=== PATIENT | female | born 1970 | race Caucasian/White ===

== ENCOUNTER 2017-05-08 16:20 | Emergency (ER) | payer SELFPAY ==
[~2017-05-08] VITALS: Ht 162.6 cm; Wt 82.6 kg
[~2017-05-08 16:20] MED LIST: ALPR1TAB2 PO; DULO30CA2 PO; HYDR-2758 PO; HYDR12.53 PO; HYDR25TA9 PO; INSU100C4 SQ; INSU100V13 SQ; INSU100V5 IJ; LAMO25TA5 PO; LEVO125T5 PO; MIRT45TA PO; OMEP20TA8 PO; TRAZ100T12 PO; ZOLP10TA PO
[2017-05-08 16:36] VITALS: BP 121/57
[2017-05-08] MEDS ORDERED: VALIUM10 MG PO (16:50)
--- NOTE | 2017-05-08 16:53 | PHYS DOC ---
Past Medical History Past Medical History: Anxiety, Diabetes-Type I, Hypothyroid Additional Past Medical Histor: "renal problems" Past Surgical History: Cholecystectomy, Gastric Bypass Additional Past Surgical Histo: gastric bypass Alcohol Use: None Drug Use: None Adult General Chief Complaint Chief Complaint: ANXIETY/PANIC ATTACK [facility] HPI Patient is a 46 year old Female that presents to the emergency department with complaints of anxiety and requesting a medication refill. Patient states she takes 10 mg of Valium twice a day and is out of her prescription. She states she has a follow-up appointment in 3 days with her primary care provider. Patient is requesting enough that I am 10 mg tabs to maintain her through the next 3 days. Patient denies thoughts of self-harm or harm to others. Review of Systems Review of Systems Constitutional: Denies fever or chills [] Eyes: Denies change in visual acuity, redness, or eye pain [] HENT: Denies nasal congestion or sore throat [] Respiratory: Denies cough or shortness of breath [] Cardiovascular: No additional information not addressed in HPI [] GI: Denies abdominal pain, nausea, vomiting, bloody stools or diarrhea [] : Denies dysuria or hematuria [] Musculoskeletal: Denies back pain or joint pain [] Integument: Denies rash or skin lesions [] Neurologic: Denies headache, focal weakness or sensory changes; anxiety [] Endocrine: Denies polyuria or polydipsia [] Allergies Allergies Allergies Coded Allergies Type Severity Reaction Last Updated Verified No Known Drug Allergies 04/17/15 No Physical Exam Physical Exam Constitutional: Well developed, well nourished, no acute distress, non-toxic appearance. [] HENT: Normocephalic, atraumatic, bilateral external ears normal, oropharynx moist, no oral exudates, nose normal. [] Eyes: PERRLA, EOMI, conjunctiva normal, no discharge. [] Neck: Normal range of motion, no tenderness, supple, no stridor. [] Cardiovascular:Heart rate regular rhythm, no murmur [] Lungs & Thorax: Bilateral breath sounds clear to auscultation [] Abdomen: Bowel sounds normal, soft, no tenderness, no masses, no pulsatile masses. [] Skin: Warm, dry, no erythema, no rash. [] Back: No tenderness, no CVA tenderness. [] Extremities: No tenderness, no cyanosis, no clubbing, ROM intact, no edema. [] Neurologic: Alert and oriented X 3, normal motor function, normal sensory function, no focal deficits noted. [] Psychologic: Affect normal, judgement normal, mood normal. [] Current Patient Data Vital Signs Vital Signs Date Time Temp Pulse Resp B/P (MAP) Pulse Ox O2 Delivery O2 Flow Rate FiO2 05/08/17 16:36 98.4 88 20 99 Room Air 98.4 EKG EKG [] Radiology/Procedures Radiology/Procedures [] Course & Med Decision Making Course & Med Decision Making Pertinent Labs and Imaging studies reviewed. (See chart for details) [] Dragon Disclaimer Dragon Disclaimer This electronic medical record was generated, in whole or in part, using a voice recognition dictation system. Departure Departure Impression: Primary Impression: Encounter for medication refill Additional Impression: Anxiety Condition: STABLE Referrals: UNKNOWN PCP NAME (PCP) Patient Instructions: Anxiety and Panic Attacks, Medication Refill, Emergency Department Additional Instructions: Chronic use pain medications and narcotic medication, such as anxiety medications, should be managed by your primary care physicians. It is your responsibility to maintain dosages and contact with your primary care provider regarding prescriptions and refills. Scripts Diazepam (VALIUM) 10 Mg Tablet 10 MG PO BID, #2 TAB Prov: TOÑITO ABBIN APRN 05/08/17 Problem Qualifiers TOÑITO BABIN APRN May 08, 2017 16:53
== END 2017-05-08 17:04 | disposition home or self-care (01) ==
LOC: ER 16:20
DX: Z76.0 Encounter for issue of repeat prescription (principal); F41.9 Anxiety disorder, unspecified; E10.9 Type 1 diabetes mellitus without complications; E03.9 Hypothyroidism, unspecified; Z90.49 Acquired absence of other specified parts of digestive tract
CPT/HCPCS: 99283; 99284

== ENCOUNTER 2017-10-04 09:01 | Emergency (ER) | payer SELFPAY ==
[~2017-10-04] VITALS: Ht 160 cm; Wt 86.6 kg
[~2017-10-04 09:01] MED LIST changes: +VALIUM10 MG PO
[2017-10-04 09:13] VITALS: BP 144/71
[2017-10-04] MEDS ORDERED: ONDA4TAB10 SL (09:29)
--- NOTE | 2017-10-04 09:30 | PHYS DOC ---
Past Medical History Past Medical History: Anxiety, Diabetes-Type I, Hypothyroid Additional Past Medical Histor: "renal problems" Past Surgical History: Cholecystectomy, Gastric Bypass Additional Past Surgical Histo: gastric bypass Alcohol Use: None Drug Use: None Adult General Chief Complaint Chief Complaint: DENTAL PROBLEM [facility] HPI Patient is a 47 year old female presents to the ED complaining of dental pain x 2 days. States she had 4 teeth pulled 4 days ago. Taking clindamycin and norco at home for her pain. Presents to the ED requesting medicine for her nausea. States the pain medicine makes her nauseous. Seen by her dentist yesterday. States everything is healing well. Denies fever, n/v, dizziness, weakness, chest pain, shortness of breath, headache. Review of Systems Review of Systems Constitutional: Denies fever or chills [] Eyes: Denies change in visual acuity, redness, or eye pain [] HENT: Denies nasal congestion or sore throat [] Respiratory: Denies cough or shortness of breath [] Cardiovascular: No additional information not addressed in HPI [] GI: Denies abdominal pain, nausea, vomiting, bloody stools or diarrhea [] : Denies dysuria or hematuria [] Musculoskeletal: Denies back pain or joint pain [] Integument: Denies rash or skin lesions [] Neurologic: Denies headache, focal weakness or sensory changes [] Endocrine: Denies polyuria or polydipsia [] All other systems were reviewed and found to be within normal limits, except as documented in this note. Allergies Allergies Allergies Coded Allergies Type Severity Reaction Last Updated Verified No Known Drug Allergies 04/17/15 No Physical Exam Physical Exam Constitutional: Well developed, well nourished, no acute distress, non-toxic appearance. [] HENT: Normocephalic, atraumatic, bilateral external ears normal, oropharynx moist, no oral exudates, nose normal. ALL TEETH REMOVED. NO ERYTHEMA, ABSCESS, FLUCTUANCE. 4 DENTAL SOCKET SPOTS OF REMOVAL HEALING WELL. [] Neck: Normal range of motion, no tenderness, supple, no stridor. [] Skin: Warm, dry, no erythema, no rash. [] Back: No tenderness, no CVA tenderness. [] Extremities: No tenderness, no cyanosis, no clubbing, ROM intact, no edema. [] Neurologic: Alert and oriented X 3, normal motor function, normal sensory function, no focal deficits noted. [] Psychologic: Affect normal, judgement normal, mood normal. [] Current Patient Data Vital Signs Vital Signs Date Time Temp Pulse Resp B/P (MAP) Pulse Ox O2 Delivery O2 Flow Rate FiO2 10/04/17 10:00 80 16 97 Room Air 10/04/17 09:13 98.5 98.5 EKG EKG [] Radiology/Procedures Radiology/Procedures [] Course & Med Decision Making Course & Med Decision Making Pertinent Labs and Imaging studies reviewed. (See chart for details) []Patient well-appearing. On exam no signs of infection, abscess or surgical complications. Tolerating PO. Patient was seen yesterday by her dentist and he told her all was healing well. Patient has been taking clindamycin and [place]. Patient complaining of a little bit of nausea with the pain medicine and is requesting some antinausea medication. Zofran prescribed. Vitals stable, no acute distress. Denies fevers, tongue swelling, difficulty swallowing. States pain and symptoms have improved since the surgery on Friday. Discussed follow- up with dentist early next week. Discussed reasons to return to the ED. Patient understands and agrees with plan. Dragon Disclaimer Dragon Disclaimer This electronic medical record was generated, in whole or in part, using a voice recognition dictation system. Departure Departure Impression: Primary Impression: Pain, dental Additional Impression: Nausea Disposition: 01 HOME, SELF-CARE Condition: IMPROVED Referrals: UNKNOWN PCP NAME (PCP) DANIEL PEREZ DDS Patient Instructions: Dental Pain, Nausea, Adult Scripts Ondansetron (ZOFRAN ODT) 4 Mg Tab.rapdis 1 TAB SL Q8HRS, #10 TAB Prov: KEVON REAL 10/04/17 Problem Qualifiers KEVON REAL Oct 04, 2017 09:30
== END 2017-10-04 10:01 | disposition home or self-care (01) ==
LOC: ER 09:01
DX: K08.89 Other specified disorders of teeth and supporting structures (principal); R11.0 Nausea; E11.9 Type 2 diabetes mellitus without complications; I10 Essential (primary) hypertension; E03.9 Hypothyroidism, unspecified
CPT/HCPCS: 99283

== ENCOUNTER 2017-10-06 08:11 | Emergency (ER) | payer SELFPAY ==
[2017-10-06 08:11] VITALS: BP 128/60
[~2017-10-06 08:11] MED LIST changes: +ONDA4TAB10 SL
[2017-10-06] MEDS ORDERED: HYDROcodone/APAP 7.5/325MG 1 TAB TABLET PO ONE (08:45)
--- NOTE | 2017-10-06 08:46 | PHYS DOC ---
Past Medical History Past Medical History: Anxiety, Depression, Diabetes-Type I, Hypothyroid, Seizure Additional Past Medical Histor: "renal problems" Past Surgical History: Cholecystectomy, Gastric Bypass, Tonsillectomy, Other Additional Past Surgical Histo: Dental surgery. Alcohol Use: None Drug Use: None Adult General Chief Complaint Chief Complaint: MEDICATION REFILL HPI HPI Patient is a 47 year old female who presents with [place] for narcotic pain medication. Patient has had extensive dental work over the past month and states that she did see her oral surgeon on Friday to request pain medication. He stated he did not see infection, inflammation or signs of worsening in her healing. He declined to give her more pain medication. She states that over the weekend she tried Tylenol and ibuprofen with little relief. She thinks that she came down off the pain medication to her past. I did offer her one dose of [place] in the emergency department and she is agreeable with that. Review of Systems Review of Systems Constitutional: Denies fever or chills [] Eyes: Denies change in visual acuity, redness, or eye pain [] HENT: see HPI Respiratory: Denies cough or shortness of breath [] Cardiovascular: No additional information not addressed in HPI [] GI: Denies abdominal pain, nausea, vomiting, bloody stools or diarrhea [] : Denies dysuria or hematuria [] Musculoskeletal: Denies back pain or joint pain [] Neurologic: Denies headache, focal weakness or sensory changes [] Endocrine: Denies polyuria or polydipsia [] All other systems were reviewed and found to be within normal limits, except as documented in this note. Current Medications Current Medications Current Medications Medications (Trade) Dose Ordered Sig/Vivek Start Time Stop Time Status Last Admin Dose Admin Acetaminophen/ Hydrocodone Bitart (Lortab 7.5/325) 1 tab 1X ONCE 10/06/17 08:45 10/06/17 08:46 Allergies Allergies Allergies Coded Allergies Type Severity Reaction Last Updated Verified No Known Drug Allergies 04/17/15 No Physical Exam Physical Exam Constitutional: Well developed, well nourished, no acute distress, non-toxic appearance. [] HENT: Normocephalic, atraumatic, bilateral external ears normal, oropharynx moist, no oral exudates, nose normal, the patient has had all upper and lower teeth removed, the upper gums are healed with no evidence of infection, erythema or swelling, the lower gums do show evidence of the molars that have been removed that appear in a well-healed state. [] Eyes: PERRLA, EOMI, conjunctiva normal, no discharge. [] Neck: Normal range of motion, no tenderness, supple, no stridor. [] Cardiovascular:Heart rate regular rhythm, no murmur [] Lungs & Thorax: Bilateral breath sounds clear to auscultation [] Neurologic: Alert and oriented X 3, normal motor function, normal sensory function, no focal deficits noted. [] Psychologic: Affect normal, judgement normal, mood normal. [] Current Patient Data Vital Signs Vital Signs Date Time Temp Pulse Resp B/P (MAP) Pulse Ox O2 Delivery O2 Flow Rate FiO2 10/06/17 08:11 98.4 99 18 99 Room Air 98.4 EKG EKG [] Radiology/Procedures Radiology/Procedures [] Course & Med Decision Making Course & Med Decision Making Pertinent Labs and Imaging studies reviewed. (See chart for details) []1. Medication refill request The patient was given 1 dose of narcotic in the emergency department. I declined to refill her pain medication and referred her back to her oral surgeon. She is to continue her salt water rinses and may use ibuprofen or Tylenol for pain control. She was warned about the dangers of driving or operating heavy machinery while on narcotics. She states that her will pick her up in the emergency department and drive her home. Dragon Disclaimer Dragon Disclaimer This electronic medical record was generated, in whole or in part, using a voice recognition dictation system. Departure Departure Referrals: UNKNOWN PCP NAME (PCP) SAURAV DAVISON APRN Oct 06, 2017 08:46
== END 2017-10-06 09:00 | disposition home or self-care (01) ==
LOC: ER 08:11
DX: K08.89 Other specified disorders of teeth and supporting structures (principal); F41.9 Anxiety disorder, unspecified; F32.9 Major depressive disorder, single episode, unspecified; E10.9 Type 1 diabetes mellitus without complications; E03.9 Hypothyroidism, unspecified; Z90.49 Acquired absence of other specified parts of digestive tract; Z98.84 Bariatric surgery status
CPT/HCPCS: 99282